=== PATIENT | male | born 1990 | race Hispanic/Latino ===

== ENCOUNTER 2018-06-20 18:59 | Emergency (ER) | payer SELFPAY ==
[2018-06-20] MEDS ORDERED: ONDANSETRON 4 MG/2 ML VIAL ONE (19:36)
[2018-06-20] MEDS ORDERED: FENTANYL CITR 100 MCG/2 ML ONE ×3 (19:36→22:55)
[2018-06-20 19:54] LABS: Absolute Lymphocytes (CBC) 1.7 K/uL (0.7-4.9); Absolute Monocytes 0.3 K/uL (0.1-1.3); Absolute Neutrophil 4.6 K/uL (1.8-8.0); Basophils % 0.6 % (0-1.3); Eosinophils % 1.8 % (0-4.4); Hematocrit 37.6 % (39.6-49.0); MPV 9.3 fL (7.6-11.3); Monocytes % 5.1 % (3.3-12.3); RBC Red Blood Cell Count 4.01 M/uL (4.33-5.43)
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
[2018-06-20 20:08] LABS: Potassium 4.1 mmol/L (3.5-5.1)
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
[2018-06-20] MEDS ORDERED: LIDOCAINE 1% MPF 5 ML VIAL ONE (21:37)
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
[2018-06-20] MEDS ORDERED: CEFAZOLIN 1GM (PREMIX IV) 1 GM/50 ML BAG ONE (22:56)
[2018-06-20] MEDS ORDERED: CEFAZOLIN SODIUM 1 GM/VIAL ONE (22:56)
== END 2018-06-20 23:34 | disposition home or self-care (01) ==
LOC: ER 18:59
PROC: 0JQH0ZZ Repair Left Lower Arm Subcutaneous Tissue and Fascia, Open Approach (ICD-10-PCS; principal; 2018-06-20)
PROC: 0CQ1XZZ Repair Lower Lip, External Approach (ICD-10-PCS; 2018-06-20)
DX: S51.012A Laceration without foreign body of left elbow, initial encounter (principal); S00.83XA Contusion of other part of head, initial encounter; S01.511A Laceration without foreign body of lip, initial encounter; Y08.02XA Assault by strike by baseball bat, initial encounter; Y08.89XA Assault by other specified means, initial encounter; V87.8XXA Person injured in other specified noncollision transport accidents involving motor vehicle (traffic), initial encounter
CPT/HCPCS: 36415; 70450; 70486; 71260; 72125; 74177; 76377; 80048; 85025; 86850; 86900; 86901; 96365; 96375; 99285; J0690; J2405; J3010; Q9967

== ENCOUNTER 2019-07-22 | Emergency (ER) | payer SELFPAY ==
--- NOTE | 2019-07-22 11:46 | EDPHYS ---
Physician Documentation [facility] Name: Johnathon Mcgrath Age: 29 yrs Sex: Male : 1990 Arrival Date: 07/22/2019 Time: 10:34 Bed 19 Private MD: ED Physician Cory Siu HPI: 07/21 11:38 This 29 yrs old Male presents to ER via Ambulatory with complaints of Cough. ps1 11:38 patient had symptoms of cough for 4 days. No distress. Concern for COVID. No CDC ps1 testing requirement. No fever. . Historical: - Allergies: 11:07 No Known Allergies; iw - Home Meds: 11:07 None [Active]; iw - PMHx: 11:07 None; iw - PSHx: 11:07 None; iw - Immunization history:: Adult Immunizations not up to date. - Social history:: Smoking status: Patient reports the use of cigarette tobacco products, smokes one-half pack cigarettes per day. ROS: 11:38 Constitutional: Negative for fever, chills, and weight loss, Eyes: Negative for injury, ps1 pain, redness, and discharge, Cardiovascular: Negative for chest pain, palpitations, and edema, Abdomen/GI: Negative for abdominal pain, nausea, vomiting, diarrhea, and constipation, MS/Extremity: Negative for injury and deformity, Skin: Negative for injury, rash, and discoloration, Neuro: Negative for headache, weakness, numbness, tingling, and seizure. 11:38 Respiratory: Positive for cough. Exam: 11:38 Constitutional: This is a well developed, well nourished patient who is awake, alert, ps1 and in no acute distress. Head/Face: Normocephalic, atraumatic. 11:38 MS/ Extremity: Pulses equal, no cyanosis. Neurovascular intact. Full, normal range of motion. Neuro: Awake and alert, GCS 15, oriented to person, place, time, and situation. Cranial nerves II-XII grossly intact. Sensory grossly intact. Psych: Awake, alert, with orientation to person, place and time. Behavior, mood, and affect are within normal limits. 11:38 Cardiovascular: deferred. Normal HR. . 11:38 Respiratory: Deferred auscultation. Normal effort. No audible wheezing. No distress. . 11:38 Abdomen/GI: deferred. . Vital Signs: 11:05 BP 114 / 79; Pulse 87; Resp 16; Temp 98.4; Pulse Ox 97% on R/A; Weight 89.81 kg; Height iw 5 ft. 7 in. (170.18 cm); Pain 2/10; 11:05 Body Mass Index 31.01 (89.81 kg, 170.18 cm) iw MDM: 11:40 Differential Diagnosis: Bronchitis Influenza Upper Respiratory Infection Viral ps1 Syndrome. Data reviewed: vital signs, nurses notes, and as a result, I will discharge patient. ED course: Does not meet CDC current guidelines for testing. Unlabored breathing. Home with tessalon. Follow quarantine guidelines for 14 days. Social distancing. Return if experience respiratory distress. . 11:44 Patient medically screened. ps1 Administered Medications: No medications were administered Disposition: 07/22/19 11:44 Discharged to Home. Impression: Bronchitis, not specified as acute or chronic, COVID-19 possible community exposure, no testing performed. . - Condition is Stable. - Discharge Instructions: Acute Bronchitis, Adult. - Prescriptions for Tessalon Perles 100 mg Oral Capsule - take 1 capsule by ORAL route every 8 hours As needed; 15 capsule. - Medication Reconciliation Form, Thank You Letter, Antibiotic Education, Prescription Opioid Use form. - Follow up: Emergency Department; When: As needed; Reason: Fever > 102 F, Trouble breathing, Worsening of condition. - Problem is new. - Symptoms are unchanged. Signatures: Tg Traore RN RN Ann-Marie White Phillip, MD MD ps1 Corrections: (The following items were deleted from the chart) 11:56 11:44 07/22/2019 11:44 Discharged to Home. Impression: Bronchitis, not specified as wh acute or chronic; COVID-19 possible community exposure, no testing performed. . Condition is Stable. Forms are Medication Reconciliation Form, Thank You Letter, Antibiotic Education, Prescription Opioid Use. Follow up: Emergency Department; When: As needed; Reason: Fever > 102 F, Trouble breathing, Worsening of condition. Problem is new. Symptoms are unchanged. ps1
--- NOTE | 2019-07-22 11:46 | ER ---
Nurse's Notes [facility] Name: Johnathon Mcgrath Age: 29 yrs Sex: Male : 1990 Arrival Date: 07/22/2019 Time: 10:34 Bed 19 Private MD: Diagnosis: Bronchitis, not specified as acute or chronic;COVID-19 possible community exposure, no testing performed. Presentation: 07/21 11:05 Chief complaint: Patient states: cough X 2 days, with phlegm, no fever, mild pain in iw neck. Coronavirus screen: The patient has NOT traveled to a country currently being monitored by the [facility] within the last 14 days. Proceed with normal triage procedures. The patient has NOT had contact with any known and/or suspected case of coronavirus. Proceed with normal triage procedures. Ebola Screen: Patient negative for fever greater than or equal to 101.5 degrees Fahrenheit, and additional compatible Ebola Virus Disease symptoms Patient denies exposure to infectious person. Patient denies travel to an Ebola-affected area in the 21 days before illness onset. No symptoms or risks identified at this time. Initial Sepsis Screen: Does the patient meet any 2 criteria? No. Patient's initial sepsis screen is negative. Does the patient have a suspected source of infection? No. Patient's initial sepsis screen is negative. Risk Assessment: Do you want to hurt yourself or someone else? Patient reports no desire to harm self or others. 11:05 Method Of Arrival: Ambulatory iw 11:05 Acuity: AMIE 4 iw 11:25 Onset of symptoms was July 22, 2019. wh Historical: - Allergies: 11:07 No Known Allergies; iw - Home Meds: 11:07 None [Active]; iw - PMHx: 11:07 None; iw - PSHx: 11:07 None; iw - Immunization history:: Adult Immunizations not up to date. - Social history:: Smoking status: Patient reports the use of cigarette tobacco products, smokes one-half pack cigarettes per day. Screenin:25 Abuse screen: Denies threats or abuse. Denies injuries from another. Nutritional wh screening: No deficits noted. Tuberculosis screening: No symptoms or risk factors identified. Fall Risk None identified. Assessment: 11:25 General: Appears in no apparent distress. Behavior is calm, cooperative, appropriate wh for age. Pain: Denies pain. Neuro: Level of Consciousness is awake, alert, obeys commands, Oriented to person, place, time, situation, Appropriate for age. Cardiovascular: Heart tones S1 S2. Respiratory: Reports cough that is Airway is patent Respiratory effort is even, unlabored, Respiratory pattern is regular, symmetrical, Breath sounds are clear bilaterally. GI: Abdomen is flat, non-distended. : No signs and/or symptoms were reported regarding the genitourinary system. EENT: No signs and/or symptoms were reported regarding the EENT system. Derm: Skin is intact, is healthy with good turgor, Skin is pink, warm \T\ dry. normal. Musculoskeletal: Circulation, motion, and sensation intact. Vital Signs: 11:05 BP 114 / 79; Pulse 87; Resp 16; Temp 98.4; Pulse Ox 97% on R/A; Weight 89.81 kg; Height iw 5 ft. 7 in. (170.18 cm); Pain 2/10; 11:05 Body Mass Index 31.01 (89.81 kg, 170.18 cm) ED Course: 10:34 Patient arrived in ED. mr 11:07 Triage completed. iw 11:07 Arm band placed on. iw 11:12 Ann-Marie White is Primary Nurse. 11:17 Cory Siu MD is Attending Physician. ps1 11:25 Patient has correct armband on for positive identification. Bed in low position. Call light in reach. Side rails up X 1. Pulse ox on. NIBP on. 11:55 No provider procedures requiring assistance completed. Patient did not have IV access during this emergency room visit. Administered Medications: No medications were administered Outcome: 11:44 Discharge ordered by . ps1 11:55 Discharged to home ambulatory. 11:55 Condition: stable 11:55 Instructed on Pt left before being discharged. Educated Pt on Coronavirus Algorithm for testing. Pt insisted he just wanted to be tested and left 11:56 Patient left the ED. Signatures: Sonya Jimenez Irene, RN RN Ann-Marie White Cory Siu MD MD ps1
== END 2019-07-22 11:56 | disposition home or self-care (01) ==
CPT/HCPCS: 99283

== ENCOUNTER 2020-04-22 23:31 | Inpatient (IN) | payer SELFPAY ==
[2020-04-23 00:30] LABS: Absolute Lymphocytes (CBC) 3.1 K/uL (0.7-4.9); Basophils % 0.5 % (0-1.3); Hematocrit 40.5 % (39.6-49.0); MPV 9.6 fL (7.6-11.3); RBC Red Blood Cell Count 4.52 M/uL (4.33-5.43)
[2020-04-23 00:34] LABS: Protime INR 1.18
[2020-04-23] MEDS ORDERED: NA CHLORIDE 0.9% 1,000 ML ONE ×4 (00:36→07:47)
[2020-04-23] MEDS ORDERED: LORazepam 2 MG/ML VIAL ONE ×4 (00:49→08:16)
[2020-04-23 01:21] LABS: ALT/SGPT 49 U/L (12-78); AST/SGOT 59 U/L (15-37); Albumin 4.8 g/dL (3.4-5.0); Alkaline Phosphatase 93 U/L (45-117); BUN Blood Urea Nitrogen 37 mg/dL (7-18); Bicarbonate 23 mmol/L (21-32); Bilirubin Direct 0.3 mg/dL (0-0.2); Bilirubin Total 1.1 mg/dL (0.2-1.0); Glucose Level 87 mg/dL (74-106); Potassium 3.7 mmol/L (3.5-5.1); Protein, Total 9.1 g/dL (6.4-8.2); Sodium Level 137 mmol/L (136-145)
[2020-04-23] MEDS ORDERED: DIPHENHYDRAMINE 50 MG/ML VIAL ONE ×2 (01:32→03:01)
[2020-04-23] MEDS ORDERED: HALOPERIDOL LACT 5 MG/ML INJ ONE (01:32)
[2020-04-23 04:02] LABS: Urine Blood 1+ (NEG); Urine Glucose NEGATIVE (NEG); Urine Protein 1+ (NEG); Urine Specific Gravity >1.030 (1.005-1.030); Urine pH 5.5 (5.0-7.0)
[2020-04-23 04:30] LABS: Barbiturates NEGATIVE (NEGATIVE); Benzodiazepines NEGATIVE (NEGATIVE); Cocaine NEGATIVE (NEGATIVE); METHAMPHETAM POSITIVE (NEGATIVE); Methadone NEGATIVE (NEGATIVE); Opiates NEGATIVE (NEGATIVE); Phencyclidine NEGATIVE (NEGATIVE); THC Cannibis POSITIVE (NEGATIVE)
[2020-04-23 07:13] LABS: Potassium 3.8 mmol/L (3.5-5.1)
--- NOTE | 2020-04-23 07:40 | EDPHYS ---
Physician Documentation [facility] Name: Johnathon Mcgrath Age: 30 yrs Sex: Male : 1990 Arrival Date: 04/22/2020 Time: 23:41 Bed 3 Private MD: ED Physician Kevyn Grant HPI: 04/23 00:20 This 30 yrs old Male presents to ER via EMS with complaints of Ingestion of cp Methamphetamine. 00:20 The patient presents to the emergency department with a possible overdose, patient cp admits to ingestion of methamphetamine and 6 pack of red bull today. Associated signs and symptoms: Pertinent positives: anxiety, abdominal pain, right shoulder pain. Historical: - Allergies: 04/22 23:30 No Known Allergies; jb4 - Home Meds: 23:30 None [Active]; jb4 - PMHx: 23:30 None; jb4 - PSHx: 23:30 None; jb4 - Immunization history:: Adult Immunizations unknown. - Social history:: Smoking status: Patient reports the use of cigarette tobacco products, Patient uses street drugs, Methamphetamine (Meth) Patient/guardian denies using alcohol. ROS: 04/23 00:30 Unable to obtain ROS due to patient being uncooperative. cp Exam: 04/22 23:47 ECG was reviewed by the Attending Physician. cp 04/23 00:35 Head/Face: Normocephalic, atraumatic. cp Constitutional: The patient appears in no acute distress, alert, awake, non-diaphoretic, non-toxic, well developed, well nourished, anxious. 00:35 Eyes: Periorbital structures: appear normal, Pupils: constricted, bilaterally, cp Extraocular movements: intact throughout, Conjunctiva: normal, no exudate, no injection, Lids and lashes: appear normal, bilaterally. 00:35 ENT: External ear(s): are unremarkable, Nose: is normal, Mouth: Lips: moist, Oral cp mucosa: moist, Posterior pharynx: Airway: no evidence of obstruction, patent. 00:35 Chest/axilla: Inspection: normal, Palpation: is normal, no crepitus, no tenderness. 00:35 Cardiovascular: Rate: tachycardic, Rhythm: regular. 00:35 Respiratory: the patient does not display signs of respiratory distress, Respirations: labored breathing, is not present, accessory muscle usage, is absent, intercostal retractions, are absent, Breath sounds: are clear throughout, no decreased breath sounds, no stridor, no wheezing. 00:35 Abdomen/GI: Inspection: abdomen appears normal, Palpation: abdomen is soft and non-tender, in all quadrants. 00:35 Neuro: Motor: moves all fours, strength is normal. 00:35 Psych: Behavior/mood is anxious, Affect is animated, Judgement / Insight is impaired. Vital Signs: 04/22 23:30 BP 126 / 85; Pulse 125; Resp 18; Temp 98.0(O); Pulse Ox 100% on R/A; Weight 81.65 kg jb4 (R); Height 5 ft. 7 in. (170.18 cm) (R); Pain 6/10; 04/23 02:20 BP 122 / 48; Pulse 110; Resp 16; Pulse Ox 96% on R/A; jb4 03:00 BP 99 / 58; Pulse 94; Resp 16; Pulse Ox 96% on R/A; jb4 04:00 BP 103 / 53; Pulse 91; Resp 14; Pulse Ox 94% on R/A; jb4 05:00 BP 111 / 56; Pulse 71; Resp 16; Pulse Ox 97% on R/A; jb4 06:00 BP 103 / 59; Pulse 81; Resp 16; Pulse Ox 97% on R/A; jb4 04/22 23:30 Body Mass Index 28.19 (81.65 kg, 170.18 cm) jb4 MDM: 04/22 23:52 Patient medically screened. cp 04/22 23:49 Order name: Acetaminophen; Complete Time: 01:28 cp 04/22 23:49 Order name: Basic Metabolic Panel; Complete Time: 01: cp 04/23 01:28 Interpretation: Normal except: BUN 37; CRE 1.99; GFR 40. cp 04/22 23:49 Order name: CBC with Diff; Complete Time: 00:50 cp 04/23 00:50 Interpretation: Normal except: WBC 14.6; MCV 89.7; NEUT A 9.8; MNA 1.5. cp 04/22 23:49 Order name: ETOH Level; Complete Time: 02:06 cp 04/22 23:49 Order name: Hepatic Function; Complete Time: 01:28 cp 04/22 23:49 Order name: PT-INR; Complete Time: 00:50 04/22 23:49 Order name: Ptt, Activated; Complete Time: 00:50 04/22 23:49 Order name: Salicylate; Complete Time: 03:14 04/22 23:49 Order name: Urine Drug Screen; Complete Time: 04:56 04/23 00:20 Order name: Lipase; Complete Time: 02:06 04/23 01:42 Order name: CK; Complete Time: 03:01 04/23 01:42 Order name: LAB Add On 04/23 03:54 Order name: Urine Dipstick--Ancillary (enter results); Complete Time: 04:24 tt3 04/23 05:07 Order name: Basic Metabolic Panel; Complete Time: 07:36 [email or web address] 04/23 00:19 Order name: XRAY Shoulder RIGHT 2 view; Complete Time: 13:26 04/23 01:42 Order name: CT Head Brain wo Cont; Complete Time: 20:13 04/23 05:07 Order name: CPK; Complete Time: 07:36 [facility] 04/23 08:18 Order name: CBC with Automated Diff EDMS 04/23 08:18 Order name: CBC with Automated Diff EDMS 04/23 08:18 Order name: Comprehensive Metabolic Panel EDMS 04/23 08:18 Order name: Comprehensive Metabolic Panel EDMS 04/23 08:18 Order name: Creatine Phosphokinase EDMS 04/23 08:18 Order name: Creatine Phosphokinase EDMS 04/23 08:18 Order name: Creatine Phosphokinase EDMS 04/23 08:18 Order name: Creatine Phosphokinase EDMN 04/23 08:23 Order name: COVID-19 ph 04/23 08:57 Order name: CORONAVIRUS EDMS 04/23 09:38 Order name: SARS-COV-2 RT PCR; Complete Time: 13:26 EDMN 04/22 23:49 Order name: EKG; Complete Time: 23:50 04/22 23:49 Order name: EKG - Nurse/Tech; Complete Time: 23:49 04/22 23:49 Order name: IV Saline Lock; Complete Time: 00:12 04/22 23:49 Order name: Labs collected and sent; Complete Time: 00:12 04/22 23:49 Order name: Urine Dipstick-Ancillary (obtain specimen); Complete Time: 03:46 cp 04/23 05:14 Order name: Restraint:Non-Violent; Complete Time: 05:23 lp1 04/23 08:18 Order name: CONS Pharmacy Consult EDMS 04/23 08:18 Order name: NPO EDMS EC:47 Rate is 118 beats/min. Rhythm is regular. WA interval is normal. QRS interval is cp normal. QT interval is normal. T waves are Inverted in lead aVR. Interpreted by me. Reviewed by me. Administered Medications: 04/23 00:30 Drug: NS 0.9% 1000 ml Route: IV; Rate: 1 bolus; Site: right forearm; jb4 01:30 Follow up: Response: No adverse reaction; IV Status: Completed infusion; IV Intake: jb4 1000ml 00:37 Drug: Ativan 0.5 mg Route: IVP; Site: right forearm; jb4 01:00 Follow up: Response: No adverse reaction jb4 01:24 Drug: Benadryl 25 mg Route: IM; Site: left deltoid; jb4 02:00 Follow up: Response: No adverse reaction jb4 01:25 Drug: HALdol (as decanoate) 10 mg Route: IM; Site: left deltoid; jb4 02:00 Follow up: Response: No adverse reaction jb4 01:39 Drug: NS 0.9% 1000 ml Route: IV; Rate: 1 bolus; Site: left forearm; jb4 02:30 Follow up: Response: No adverse reaction; IV Status: Completed infusion; IV Intake: jb4 1000ml 01:39 Drug: Ativan 1 mg Route: IVP; Site: right forearm; jb4 02:00 Follow up: Response: No adverse reaction jb4 04:04 Drug: NS 0.9% 1000 ml Route: IV; Rate: 1000 ml; Site: right antecubital; jb4 05:00 Follow up: Response: No adverse reaction; IV Status: Completed infusion; IV Intake: jb4 1000ml 08:10 Drug: Ativan 2 mg Route: IVP; Site: right forearm; ph 08:23 Follow up: Response: No adverse reaction ph Disposition: 07:37 Co-signature as Attending Physician, Kevyn Grant MD Pt with up-trending CK, despite 3 L rn fluids, still intoxicated with blood in urine, mild rhabdomyolysis, admitted to Dr. Martino . Disposition: 04/23/20 07:39 Hospitalization ordered by Mathieu Martino for Observation. Preliminary diagnosis are Adverse effect of amphetamines, Rhabdomyolysis, Dehydration. - Bed requested for Telemetry/MedSurg (observation). - Status is Observation. ph - Condition is Stable. - Problem is new. - Symptoms have worsened. Signatures: Dispatcher [employer] EDMS Daisy Villarreal RN RN dw Nieto, Roman, MD MD rn Pena, Laura, RN RN lp1 Heather Bautista RN RN ph Mak Wright PA PA cp Miles Londono RN RN jb4 Juma Cooper MD MD [id number] Corrections: (The following items were deleted from the chart) 00:50 00:50 Normal except: WBC 14.6; MCV 89.7; NEUT A 9.8. cp cp 10:36 07:39 Hospitalization Ordered by Mathieu Martino MD for Observation. Preliminary dw diagnosis is Adverse effect of amphetamines; Rhabdomyolysis; Dehydration. Bed requested for Telemetry/MedSurg (observation). Status is Observation. Condition is Stable. Problem is new. Symptoms have worsened. rn 11:10 10:36 04/23/2020 07:39 Hospitalization Ordered by Mathieu Martino MD for Observation. ph Preliminary diagnosis is Adverse effect of amphetamines; Rhabdomyolysis; Dehydration. Bed requested for Telemetry/MedSurg (observation). Status is Observation. Condition is Stable. Problem is new. Symptoms have worsened. dw
--- NOTE | 2020-04-23 07:40 | ER ---
Nurse's Notes [facility] Name: Johnathon Mcgrath Age: 30 yrs Sex: Male : 1990 Arrival Date: 04/22/2020 Time: 23:41 Bed 3 Private MD: Diagnosis: Adverse effect of amphetamines;Rhabdomyolysis;Dehydration Presentation: 04/22 23:30 Chief complaint: EMS states: Pt is complaining of abdominal pain, he is pretty anxious jb4 and was diaphoretic on scene. Pt reports consuming meth and a 6 pack of red bull today. 23:30 Coronavirus screen: Client denies travel out of the [place] in the last 14 days. At this jb4 time, the client does not indicate any symptoms associated with coronavirus-19. Ebola Screen: No symptoms or risks identified at this time. Initial Sepsis Screen: Does the patient meet any 2 criteria? HR > 90 bpm. Yes Does the patient have a suspected source of infection? No. Patient's initial sepsis screen is negative. Risk Assessment: Do you want to hurt yourself or someone else? Patient reports no desire to harm self or others. Onset of symptoms was April 22, 2020. Transition of care: patient was not received from another setting of care. 23:30 Method Of Arrival: EMS: [facility] jb4 23:30 Acuity: AMIE 2 jb4 Historical: - Allergies: 23:30 No Known Allergies; jb4 - Home Meds: 23:30 None [Active]; jb4 - PMHx: 23:30 None; jb4 - PSHx: 23:30 None; jb4 - Immunization history:: Adult Immunizations unknown. - Social history:: Smoking status: Patient reports the use of cigarette tobacco products, Patient uses street drugs, Methamphetamine (Meth) Patient/guardian denies using alcohol. Screenin/18 23:30 Abuse screen: Denies threats or abuse. Nutritional screening: No deficits noted. jb4 Tuberculosis screening: No symptoms or risk factors identified. Fall Risk None identified. Assessment: 23:30 General: Appears in no apparent distress. uncomfortable, Behavior is cooperative, jb4 anxious. Pain: Complains of pain in right shoulder Pain does not radiate. Pain currently is 6 out of 10 on a pain scale. Neuro: Level of Consciousness is awake, alert, obeys commands, Oriented to person, place, time. Cardiovascular: Skin is warm and diaphoretic. . Rhythm is sinus tachycardia. Respiratory: Airway is patent Respiratory effort is even, unlabored, Respiratory pattern is regular, symmetrical. GI: No signs and/or symptoms were reported involving the gastrointestinal system. : No signs and/or symptoms were reported regarding the genitourinary system. EENT: No signs and/or symptoms were reported regarding the EENT system. Derm: Skin is intact, Skin is diaphoretic, Skin is normal, Skin temperature is warm. Musculoskeletal: Circulation, motion, and sensation intact. Range of motion: intact in all extremities. 04/23 00:30 Reassessment: Patient appears in no apparent distress at this time. Patient and/or jb4 family updated on plan of care and expected duration. Pain level reassessed. Patient is alert, oriented x 3, equal unlabored respirations, skin warm/dry/pink. Pt continues to hallucinate and shout. provider notified. 01:30 Reassessment: Patient appears in no apparent distress at this time. No changes from jb4 previously documented assessment. Patient and/or family updated on plan of care and expected duration. Pain level reassessed. 02:03 Reassessment: Patient appears in no apparent distress at this time. Patient and/or jb4 family updated on plan of care and expected duration. Pain level reassessed. Pt is now resting comfortably in bed with eyes closed. respirations are even and unlabored, no s/s of pain or distress noted. 02:50 Reassessment: Patient appears in no apparent distress at this time. Patient and/or jb4 family updated on plan of care and expected duration. Pain level reassessed. Pt growing more restless and agitated, provider notified, see MAR for orders. 03:30 Reassessment: Patient appears in no apparent distress at this time. Patient and/or jb4 family updated on plan of care and expected duration. Pain level reassessed. Pt continues to appear agitated, transferred to CT with the help of thin film technician. Straight cath performed, assisted by thin film technician, Charge nurse and Physician. 04:26 Reassessment: Patient appears in no apparent distress at this time. Patient and/or jb4 family updated on plan of care and expected duration. Pain level reassessed. Pt currently resting calmly in bed with eyes closed, respirations are even and unlabored with no s/s or pain or distress noted. 05:00 Reassessment: Patient noted to be standing at edge of bed, unsteady gait, guided back lp1 into bed by ED staff; Verbal order for restraints by Dr. Cooper for patient safety. 06:00 Reassessment: Patient appears in no apparent distress at this time. No changes from jb4 previously documented assessment. Patient and/or family updated on plan of care and expected duration. Pain level reassessed. 08:06 Reassessment: Patient appears in no apparent distress at this time. Pt writhing around ph in bed, moaning, states, " I need to take a cold shower." encouraged pt to stay in bed, pt w/ difficulty following commands, ERP notified, verbal order received for Ativan. Vital Signs: 04/22 23:30 BP 126 / 85; Pulse 125; Resp 18; Temp 98.0(O); Pulse Ox 100% on R/A; Weight 81.65 kg jb4 (R); Height 5 ft. 7 in. (170.18 cm) (R); Pain 6/10; 04/23 02:20 BP 122 / 48; Pulse 110; Resp 16; Pulse Ox 96% on R/A; jb4 03:00 BP 99 / 58; Pulse 94; Resp 16; Pulse Ox 96% on R/A; jb4 04:00 BP 103 / 53; Pulse 91; Resp 14; Pulse Ox 94% on R/A; jb4 05:00 BP 111 / 56; Pulse 71; Resp 16; Pulse Ox 97% on R/A; jb4 06:00 BP 103 / 59; Pulse 81; Resp 16; Pulse Ox 97% on R/A; jb4 04/22 23:30 Body Mass Index 28.19 (81.65 kg, 170.18 cm) jb4 ED Course: 04/21 23:30 Patient has correct armband on for positive identification. Placed in gown. Bed in low jb4 position. Call light in reach. Side rails up X 1. quality assurance monitor chassis on. Pulse ox on. NIBP on. 04/22 23:30 Arm band placed on right wrist. jb4 23:41 Patient arrived in ED. jb4 23:44 Miles Londono, RN is Primary Nurse. jb4 23:46 Triage completed. jb4 23:48 Juma Cooper MD is Attending Physician. mh7 23:48 Mak Wright PA is PHCP. cp 04/23 01:21 XRAY Shoulder RIGHT 2 view In Process Unspecified. EDMS 03:44 CT Head Brain wo Cont In Process Unspecified. EDMS 07:15 Notified ED physician of a critical lab result(s). CPK 2328. lp1 07:15 LAB Add On Sent. sv 07:16 Primary Nurse role handed off by Miles Londono, INES jb4 07:22 Heather Bautista, RN is Primary Nurse. ph 07:39 Mathieu Martino MD is Hospitalizing Provider. rn 07:40 Attending Physician role handed off by Juma Cooper MD rn 07:40 Kevyn Grant MD is Attending Physician. rn 08:19 COVID swab sent to lab. sv 11:09 No provider procedures requiring assistance completed. Patient admitted, IV remains in ph place. Restraints: 05:00 Non-Violent Restraint: Order obtained. Initiated on April 23, 2020 at 05:00 lp1 Restraint Education provided to family/significant other/legally authorized motor vehicle representative. Actions/Behavior observed: Confused/disoriented, has difficulty remembering/follow instructions, has impaired decision making, repeated attempts to get up from bed/chair w/o assistance, has decreased level of consciousness, unable to follow instructions, Less restrictive alternatives attempted: decrease environmental stimuli, placed near Nurse station, reoriented to location, Alternative interventions: Ineffective. Clinical justification for use: patient safety, Mental status: confused, Cognition: Unable to assess. Circulation: Within defined parameters (based on Cardiovascular assessment) Skin integrity: Within defined parameters (based on Integumentary assessment) Signs of injury related to restraint: No injuries noted. Range of Motion (ROM): performed. Restraint status: Soft wrist restraint (Right) Started. Soft wrist restraint (Left) Started. 07:00 Non-Violent Restraint: Actions/Behavior observed: Confused/disoriented, has difficulty ph remembering/follow instructions, has impaired decision making, has decreased level of consciousness, unable to follow instructions, Mental status: confused, Cognition: poor judgement, poor safety awareness, unable to follow commands, Circulation: Within defined parameters (based on Cardiovascular assessment) Skin integrity: Within defined parameters (based on Integumentary assessment) Signs of injury related to restraint: No injuries noted. Range of Motion (ROM): performed. Restraint status: Soft wrist restraint (Right) Soft wrist restraint (Left). 08:30 Non-Violent Restraint: Mental status: patient asleep, Restraint Discontinued on ph April 23, 2020 at 08:30 Effective alternative interventions implemented: decreased environmental stimuli, placed near Nurse station, medicated for pain/anxiety. Administered Medications: 00:30 Drug: NS 0.9% 1000 ml Route: IV; Rate: 1 bolus; Site: right forearm; jb4 01:30 Follow up: Response: No adverse reaction; IV Status: Completed infusion; IV Intake: jb4 1000ml 00:37 Drug: Ativan 0.5 mg Route: IVP; Site: right forearm; jb4 01:00 Follow up: Response: No adverse reaction jb4 01:24 Drug: Benadryl 25 mg Route: IM; Site: left deltoid; jb4 02:00 Follow up: Response: No adverse reaction jb4 01:25 Drug: HALdol (as decanoate) 10 mg Route: IM; Site: left deltoid; jb4 02:00 Follow up: Response: No adverse reaction jb4 01:39 Drug: NS 0.9% 1000 ml Route: IV; Rate: 1 bolus; Site: left forearm; jb4 02:30 Follow up: Response: No adverse reaction; IV Status: Completed infusion; IV Intake: jb4 1000ml 01:39 Drug: Ativan 1 mg Route: IVP; Site: right forearm; jb4 02:00 Follow up: Response: No adverse reaction jb4 04:04 Drug: NS 0.9% 1000 ml Route: IV; Rate: 1000 ml; Site: right antecubital; jb4 05:00 Follow up: Response: No adverse reaction; IV Status: Completed infusion; IV Intake: jb4 1000ml 08:10 Drug: Ativan 2 mg Route: IVP; Site: right forearm; ph 08:23 Follow up: Response: No adverse reaction ph Intake: 04/22 21:45 IV: 1000ml; Total: 1000ml. jb4 04/23 01:30 IV: 1000ml; Total: 2000ml. jb4 02:30 IV: 1000ml; Total: 3000ml. jb4 05:00 IV: 1000ml; Total: 4000ml. jb4 Outcome: 07:39 Decision to Hospitalize by Provider. rn 11:09 Admitted to Med/surg accompanied by tech, via stretcher, with chart, Report called to suma Maurice 11:09 Condition: stable 11:10 Patient left the ED. Signatures: Dispatcher [employer] EDMS Rochelle Galvez, RN Kevyn Vitale MD MD rn Pena, Laura, RN RN lp1 Heather Bautista RN RN ph Page, Corey, PA PA cp Bryson, James, RN RN jb4 Juma Cooper MD MD mh7 Corrections: (The following items were deleted from the chart) 04/21 23:30 General: Appears in no apparent distress. uncomfortable, Behavior is jb4 cooperative, anxious, jb4 04/23 23:30 Neuro: Level of Consciousness is awake, alert, obeys commands, Oriented to jb4 person, place, time, situation, jb4
[2020-04-23] MEDS ORDERED: ACETAMINOPHEN 500 MG TAB PO PRN (08:15)
[2020-04-23] MEDS ORDERED: ONDANSETRON 4 MG/2 ML VIAL IV PRN (08:15)
[2020-04-23] MEDS ORDERED: MORPHINE 2 MG/ML SYR IV PRN (08:15)
--- NOTE | 2020-04-23 08:21 | P.HP ---
Certification for Inpatient Patient admitted to: Observation With expected LOS: <2 Midnights Patient will require the following post-hospital care: None Practitioner: I am a practitioner with admitting privileges, knowledge of patient current condition, hospital course, and medical plan of care. Services: Services provided to patient in accordance with Admission requirements found in Title 42 Section 412.3 of the Code of Federal Regulations Patient History Date of Service: 04/23/20 Reason for admission: AMS History of Present Illness: 30-year-old male with no significant past medical history who came in to ER with altered mental status after having Methamphetamine. At the time of interview patient is altered and drowsy hence most of the history is obtained from the chart review and also talking to the ER physician. The patient presents to the emergency department with a possible overdose, patient admits to ingestion of methamphetamine and 6 pack of red bull last night . Associated with with anxiety abdominal pain and generalized body pain. Patient was assessed in the ER and was found to have rhabdomyolysis and was admitted for further management Allergies No Known Drug Allergies Allergy (Unverified 12/30/14 10:03) Unknown No Known Allergies Allergy (Uncoded 09/06/16 03:16) Unknown Home medications list reviewed: Yes - Past Medical/Surgical History Past Medical History: Reviewed- Non-Contributory Past Surgical History: Reviewed- Non-Contributory - Family History Family History: Reviewed- Non-Contributory - Social History Smoking Status: Current some day smoker Review of Systems is unable to be obtained Physical Examination - Vital Signs Temperature: 98.4 F Blood Pressure: 128/76 Pulse: 98 Respirations: 20 - Physical Exam General: Confused, Other (Drowsy but arousable ) HEENT: Atraumatic, Normocephalic Neck: Supple Respiratory: Clear to auscultation bilaterally, Normal air movement Cardiovascular: No edema, Regular rate/rhythm, Normal S1 S2 Capillary refill: <2 Seconds Gastrointestinal: Soft and benign, W/out hepatosplenomegaly Musculoskeletal: No clubbing, No swelling Integumentary: No rashes, No breakdown Neurological: Other (Drowsy but arousable , moves all the limbs ) Lymphatics: No axilla or inguinal lymphadenopathy - Studies Laboratory Data (last 24 hrs) 04/23/20 06:23: Sodium 140, Potassium 3.8, BUN 28 H, Creatinine 1.23, Glucose 85 12/20/20 01:10: Lipase 41 L 04/23/20 00:10: PT 13.9 H, INR 1.18, APTT 29.1 04/23/20 00:10: WBC 14.6 H, Hgb 13.8, Hct 40.5, Plt Count 284 04/23/20 00:10: Sodium 137, Potassium 3.7, BUN 37 H, Creatinine 1.99 H, Glucose 87, Total Bilirubin 1.1 H, AST 59 H, ALT 49, Alkaline Phosphatase 93 Assessment and Plan - Problems (Diagnosis) (1) Acute encephalopathy Current Visit: Yes Status: Acute (2) Substance abuse Current Visit: Yes Status: Acute (3) Rhabdomyolysis Current Visit: Yes Status: Acute - Advance Directives Does patient have a Living Will: No Does patient have a Durable POA for Healthcare: No Physician Review Additional Text: Acute encephalopathy toxic substance abuse with methamphetamine Rhabdomyolysis Acute renal insufficiency Plan Monitor under test eng neuro vital signs CT of the head negative for any acute changes Monitor renal parameters Monitor CK serially aggressive hydration GI/DVT prophylaxis Time Spent Managing Pts Care (In Minutes): 42
--- NOTE | 2020-04-23 11:29 | RAD REPORT ---
EXAM DESCRIPTION: RAD - Shoulder Right 2 View - 04/23/2020 1:21 am CLINICAL HISTORY: PAIN COMPARISON: No comparisons FINDINGS: Examination is limited by nonstandard anatomic positioning. Within this limitation, no fra cture or dislocation is seen.
[2020-04-23] MEDS: NA CHLORIDE 0.9% 1,000 ML IV SCH ×3 (11:54→23:49)
[2020-04-23 15:38] VITALS: BMI 29.7
--- NOTE | 2020-04-23 17:51 | RAD REPORT ---
EXAM DESCRIPTION: CT Head Brain Wo Cont CLINICAL HISTORY: MENTAL STATUS CHANGE COMPARISON: CT head 06/20/2018 TECHNIQUE: Head/brain axial images acquired without contrast. Coronal and sagittal reformats created . Exam performed according to departmental dose-optimization program which includes automated exposur e control, adjustment of mA and/or kV according to patient size, and/or use of iterative reconstructi on technique. FINDINGS: No midline shift, mass effect, intracranial hemorrhage, or hydrocephalus. Brain parenchyma unremarkable. Paranasal sinuses and mastoid air cells clear. No skull fracture or significant skull lesion. IMPRESSION: Unremarkable CT head without contrast. Electronically signed by: Jose Kelley MD 04/23/2020 4:14 AM INSOLE PRESSER Due to temporary technical issues with the PACS/Fluency reporting system, reports are being signed by the in house radiologists without review as a courtesy to insure prompt reporting. The interpreting radiologist is fully responsible for the content of the report.
[2020-04-23 22:18] VITALS: O2SAT 100
[2020-04-24 05:54] LABS: Absolute Lymphocytes (CBC) 3.1 K/uL (0.7-4.9); Basophils % 0.5 % (0-1.3); Hematocrit 35.4 % (39.6-49.0); Lymphocytes % 50.2 % (15.3-44.8); MPV 8.8 fL (7.6-11.3); RBC Red Blood Cell Count 3.88 M/uL (4.33-5.43)
[2020-04-24 06:15] LABS: ALT/SGPT 36 U/L (12-78); AST/SGOT 42 U/L (15-37); Albumin 2.9 g/dL (3.4-5.0); Alkaline Phosphatase 62 U/L (45-117); BUN Blood Urea Nitrogen 14 mg/dL (7-18); Bicarbonate 29 mmol/L (21-32); Bilirubin Total 0.3 mg/dL (0.2-1.0); Glucose Level 83 mg/dL (74-106); Potassium 3.6 mmol/L (3.5-5.1); Protein, Total 6.2 g/dL (6.4-8.2); Sodium Level 144 mmol/L (136-145)
[2020-04-24 06:20] LABS: Creatine Phosphokinase 1442 U/L (39-308)
--- NOTE | 2020-04-24 08:08 | P.DS ---
Admission Date: 04/23/20 Discharge Date: 04/24/20 Primary Care Provider: none Disposition: ROUTINE DISCHARGE Discharge Condition: GOOD Reason for Admission: AMS Consultations: none Procedures: CT Scan: FINDINGS: No midline shift, mass effect, intracranial hemorrhage, or hydrocephalus. Brain parenchyma unremarkable. Paranasal sinuses and mastoid air cells clear. No skull fracture or significant skull lesion. IMPRESSION: Unremarkable CT head without contrast. Xray: Comparison: No comparisons FINDINGS: Examination is limited by nonstandard anatomic positioning. Within this limitation, no fracture or dislocation is seen. Medical Problem List: Acute metabolic/toxic encephalopathy related to drug abuse positive for methamphetamines/THC Acute renal insufficiency with rhabdomyolysis Brief History of Present Illness: 30-year-old male with no significant past medical history who came in to ER with altered mental status after using methamphetamine. In the ER patient was altered and drowsy. Patient admitted to ingesting methamphetamine and a six pack of Red Bull the previous night. CT head unremarkable. CPK elevated. Patient admitted for hydration and further evaluation. Hospital Course: Patient presented with altered mental status. Patient admitted using methamphetamines. Patient was positive for methamphetamines and THC. CT head unremarkable. The patient also was found to have acute rhabdomyolysis with acute renal insufficiency. The patient was admitted for further evaluation and treatment. Patient received IV fluids. Renal function improved back to baseline. CK also improved. At discharge, Orthostatics within normal range. Patient appears to be back to his baseline. At discharge patient will be sent home with folic acid 1 mg daily and thiamine 100 mg daily. Recommend to discontinue methamphetamines and THC. Risks of continued use addressed in detail. Education provided. Recommend to increase fluid intake over the next 1-2 weeks. Recommend to recheck lab-CK and BMP in 1-2 weeks to monitor his progress. Recommend to establish care with a local PCP to further monitor his care. Education on rhabdomyolysis and renal insufficiency provided. Vital Signs/Physical Exam: Temp Pulse Resp BP Pulse Ox 97.4 F 75 18 94/49 L 97 04/24/20 04:00 04/24/20 04:00 04/24/20 04:00 04/24/20 04:00 04/24/20 04:00 General: Alert, In no apparent distress, Oriented x3, Cooperative HEENT: Atraumatic Neck: Supple Respiratory: Clear to auscultation bilaterally, Normal air movement Cardiovascular: Normal pulses, Regular rate/rhythm Gastrointestinal: Normal bowel sounds, Soft and benign, Non-distended, No tenderness, No masses, No rebound, No guarding Musculoskeletal: No erythema, No tenderness, No warmth Integumentary: No tenderness/swelling, No erythema, No warmth, No cyanosis Neurological: Normal speech, Normal strength at 5/5 x4 extr, Normal tone, Normal affect Laboratory Data at Discharge: WBC 6.1 K/uL (4.3-10.9) D 04/24/20 05:32 Hgb 12.0 g/dL (13.6-17.9) L 04/24/20 05:32 Hct 35.4 % (39.6-49.0) L 04/24/20 05:32 Plt Count 222 K/uL (152-406) D 04/24/20 05:32 PT 13.9 SECONDS (9.5-12.5) H 04/23/20 00:10 INR 1.18 04/23/20 00:10 APTT 29.1 SECONDS (24.3-36.9) 04/23/20 00:10 Sodium 144 mmol/L (136-145) 04/24/20 05:32 Potassium 3.6 mmol/L (3.5-5.1) 04/24/20 05:32 BUN 14 mg/dL (7-18) 04/24/20 05:32 Creatinine 0.79 mg/dL (0.55-1.3) 04/24/20 05:32 Glucose 83 mg/dL (74-106) 04/24/20 05:32 Total Bilirubin 0.3 mg/dL (0.2-1.0) 04/24/20 05:32 AST 42 U/L (15-37) H 04/24/20 05:32 ALT 36 U/L (12-78) 04/24/20 05:32 Alkaline Phosphatase 62 U/L (45-117) 04/24/20 05:32 Lipase 41 U/L (73-393) L 04/23/20 01:10 Home Medications: Folic Acid 1 mg PO DAILY #30 tablet 04/24/20 Thiamine HCl 100 mg PO DAILY #30 tablet 04/24/20 New Medications: Folic Acid 1 mg PO DAILY #30 tablet Thiamine HCl 100 mg PO DAILY #30 tablet Patient Discharge Instructions: 1. Recommend to establish care with a local PCP to follow up this hospitalization. 2. Patient presented with altered mental status. Patient admitted using methamphetamines. Patient was positive for methamphetamines and THC. CT head unremarkable. The patient also was found to have acute rhabdomyolysis with acute renal insufficiency. The patient was admitted for further evaluation and treatment. Patient received IV fluids. Renal function improved back to baseline. CK also improved. At discharge, Orthostatics within normal range. Patient appears to be back to his baseline. At discharge patient will be sent home with folic acid 1 mg daily and thiamine 100 mg daily. Recommend to discontinue methamphetamines and THC. Risks of continued use addressed in detail. Education provided. Recommend to increase fluid intake over the next 1-2 weeks. Recommend to recheck lab-CK and BMP in 1- 2 weeks to monitor his progress. Recommend to establish care with a local PCP to further monitor his care. Education on rhabdomyolysis and renal insufficiency provided. Diet: Regular Activity: Ad my Followup: Unknown,U [Primary Care Provider] - Time spent managing pt's care (in minutes): 55
[2020-04-24 08:26] LABS: Blood Morphology Comment NOT SEEN (NOT SEEN); Platelet Estimate ADEQ
[2020-04-24 10:02] VITALS: BP 103/58; TEMP 97
== END 2020-04-24 11:00 | disposition home or self-care (01) | DRG 917 ==
LOC: ER 23:31 → ERHOLD 04-23 08:16 → 2ND 04-23 10:55 → OBSVTOIN 04-23 13:33
PROVIDERS: ADMIT Family Medicine; ATTEND Family Medicine
DX: T43.621A Poisoning by amphetamines, accidental (unintentional), initial encounter (principal); G92 Toxic encephalopathy; M62.82 Rhabdomyolysis; F17.210 Nicotine dependence, cigarettes, uncomplicated; N28.9 Disorder of kidney and ureter, unspecified; F41.9 Anxiety disorder, unspecified; F15.10 Other stimulant abuse, uncomplicated; Z20.828 Contact with and (suspected) exposure to other viral communicable diseases
CPT/HCPCS: 36415; 70450; 80048; 80053; 80076; 80307; 80320; 80329; 81003; 82550; 83690; 85025; 85610; 85730; 93005; 96361; 96372; 96374; 99285; J1200; J1630; J7030; U0003

== ENCOUNTER 2023-03-29 02:50 | Emergency (ER) | payer SELFPAY ==
[2023-03-29] MEDS ORDERED: IBUPROFEN 400 MG TAB ONE (03:27)
[2023-03-29] MEDS ORDERED: TRAMADOL HCL 50 MG TAB ONE (03:27)
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
[2023-03-29 05:02] VITALS: BP 128/86; TEMP 98; O2SAT 99
--- NOTE | 2023-03-31 11:47 | RAD REPORT ---
EXAM DESCRIPTION: XR TIBIA FIBULA RIGHT CLINICAL HISTORY: Male, 32 years old, PAIN TECHNIQUE: AP and lateral views right tib-fib, 4 images COMPARISON: None. FINDINGS: No acute fracture. Normal osseous mineralization. The partially assessed knee and ankle tony ints are congruent. Mild nonfocal soft tissue swelling. IMPRESSION: No acute osseous finding of the right lower leg. Electronically signed by: Anton Gallego MD 03/29/2023 05:02 AM PASTRY COOK HELPER Due to temporary technical issues with the PACS/Fluency reporting system, reports are being signed by the in house radiologist without review as a courtesy to ensure prompt reporting. The interpreting r adiologist is fully responsible for the content of the report.
--- NOTE | 2023-03-31 12:07 | RAD REPORT ---
EXAM DESCRIPTION: XR ANKLE 2 VIEWS LEFT, XR FOOT 3 OR MORE VIEWS LEFT, XR TIBIA FIBULA LEFT CLINICAL HISTORY: Male, 32 years old, PAIN TECHNIQUE: AP and lateral views of the left tib-fib, ankle, and foot; oblique view left foot; 9 tota l images COMPARISON: None. FINDINGS: No acute fracture. Normal osseous mineralization. Joints are congruent without significant degenerative change. Diffuse, circumferential soft tissue swelling from the knee to the ankle. IMPRESSION: Nonfocal soft tissue swelling without acute osseous finding of the assessed left lower e xtremity. Electronically signed by: Anton Gallego MD 03/29/2023 03:46 AM TECHNICIAN Due to temporary technical issues with the PACS/Fluency reporting system, reports are being signed by the in house radiologist without review as a courtesy to ensure prompt reporting. The interpreting r adiologist is fully responsible for the content of the report.
--- NOTE | 2023-03-31 12:23 | RAD REPORT ---
EXAM DESCRIPTION: XR ANKLE 2 VIEWS LEFT, XR FOOT 3 OR MORE VIEWS LEFT, XR TIBIA FIBULA LEFT CLINICAL HISTORY: Male, 32 years old, PAIN TECHNIQUE: AP and lateral views of the left tib-fib, ankle, and foot; oblique view left foot; 9 tota l images COMPARISON: None. FINDINGS: No acute fracture. Normal osseous mineralization. Joints are congruent without significant degenerative change. Diffuse, circumferential soft tissue swelling from the knee to the ankle. IMPRESSION: Nonfocal soft tissue swelling without acute osseous finding of the assessed left lower e xtremity. Electronically signed by: Anton Gallego MD 03/29/2023 03:46 AM VMWARE ARCHITECT Due to temporary technical issues with the PACS/Fluency reporting system, reports are being signed by the in house radiologist without review as a courtesy to ensure prompt reporting. The interpreting r adiologist is fully responsible for the content of the report.
--- NOTE | 2023-03-31 12:36 | RAD REPORT ---
EXAM DESCRIPTION: XR ANKLE 2 VIEWS LEFT, XR FOOT 3 OR MORE VIEWS LEFT, XR TIBIA FIBULA LEFT CLINICAL HISTORY: Male, 32 years old, PAIN TECHNIQUE: AP and lateral views of the left tib-fib, ankle, and foot; oblique view left foot; 9 tota l images COMPARISON: None. FINDINGS: No acute fracture. Normal osseous mineralization. Joints are congruent without significant degenerative change. Diffuse, circumferential soft tissue swelling from the knee to the ankle. IMPRESSION: Nonfocal soft tissue swelling without acute osseous finding of the assessed left lower e xtremity. Electronically signed by: Anton Gallego MD 03/29/2023 03:46 AM CARE TRANSITION MGR Due to temporary technical issues with the PACS/Fluency reporting system, reports are being signed by the in house radiologist without review as a courtesy to ensure prompt reporting. The interpreting r adiologist is fully responsible for the content of the report.
== END 2023-03-29 04:58 | disposition home or self-care (01) ==
LOC: ER 02:50
DX: S80.12XA Contusion of left lower leg, initial encounter (principal); S80.11XA Contusion of right lower leg, initial encounter
CPT/HCPCS: 99283

== ENCOUNTER 2023-09-12 12:49 | Emergency (ER) | payer SELFPAY ==
--- NOTE | 2023-09-12 13:06 | EDPHYS ---
Physician Documentation [facility] Name: Johnathon Mcgrath Age: 33 yrs Sex: Male : 1990 Arrival Date: 09/12/2023 Time: 12:49 Bed IW1 Private MD: ED Physician Mak See HPI: 09/11 13:03 This 33 yrs old Male presents to ER via Unassigned with complaints of kb Laceration To Nose. 13:03 Pt is a 33 year old male who presents for laceration to nose that occurred 1 week. kb States the wound hasn't closed and has been leaking pus. Denies fever. . Historical: - Allergies: 13:08 No Known Allergies; hb - Home Meds: 13:08 None [Active]; hb - PMHx: 13:08 None; hb - PSHx: 13:08 None; hb - Immunization history:: Adult Immunizations up to date. - Infectious Disease History:: Denies. - Social history:: Smoking status: Patient reports the use of cigarette tobacco products. ROS: 13:03 Constitutional: As per HPI kb Exam: 13:03 Constitutional: This is a well developed, well nourished patient who is awake, alert, kb and in no acute distress. Head/Face: Normocephalic, atraumatic. ENT: Moist Mucous membranes Cardiovascular: Regular rate Respiratory: Respirations even and unlabored. No increased work of breathing. Talking in full sentences MS/ Extremity: Pulses equal, no cyanosis. Neurovascular intact. Full, normal range of motion. Neuro: Awake and alert, GCS 15, oriented to person, place, time, and situation. Moves all extremities. Normal gait. 13:03 Skin: injury, laceration(s), the wound is approximately 1 cm(s), of the bridge of nose, that can be described as clean, no foreign body, linear, without bleeding, with surrounding erythema and swelling, Vital Signs: 13:06 BP 136 / 90; Pulse 103; Resp 16; Temp 97.7(TE); Pulse Ox 100% on R/A; Pain 0/10; hb 13:06 Pain Scale: Adult hb MDM: 12:56 Patient medically screened. kb 13:03 Data reviewed: vital signs, nurses notes. kb 13:08 Differential diagnosis: laceration, abrasion, abscess, wound infection. Counseling: I kb had a detailed discussion with the patient and/or guardian regarding the historical points, exam findings, and any diagnostic results supporting the discharge/admit diagnosis, the need for outpatient follow up, a family practitioner, to return to the emergency department if symptoms worsen or persist or if there are any questions or concerns that arise at home. Administered Medications: No medications were administered Disposition Summary: 09/12/23 13:06 Discharge Ordered Notes: Location: Home kb Condition: Stable kb Diagnosis - Laceration without foreign body of nose kb - Local infection of the skin and subcutaneous tissue, unspecified kb Followup: kb - With: Emergency Department - When: As needed - Reason: Worsening of condition Followup: kb - With: Private Physician - When: 2 - 3 days - Reason: Recheck today's complaints, Continuance of care, Re-evaluation by your physician Discharge Instructions: - Discharge Summary Sheet kb - Laceration Care, Adult, [id number] kb - Wound Infection, [id number] kb Forms: - Medication Reconciliation Form kb - Antibiotic Education kb - Prescription Opioid Use kb - Patient Portal Instructions kb - Leadership Thank You Letter kb Prescriptions: - mupirocin 2 % Topical ointment - apply 1 application TOPICAL route 3 times per day; 1 unit; Refills: 0, Product kb Selection Permitted - Cephalexin 500 mg Oral Capsule - take 1 capsule ORAL route every 8 hours for 10 days; 30 capsule; Refills: 0, kb Product Selection Permitted Signatures: Jeanne Gong, AMBERLYC ANNE-Catie Lu, RN RN
--- NOTE | 2023-09-12 13:13 | ER ---
Nurse's Notes [facility] Name: Johnathon Mcgrath Age: 33 yrs Sex: Male : 1990 Arrival Date: 09/12/2023 Time: 12:49 Bed IW1 Private MD: Diagnosis: Laceration without foreign body of nose;Local infection of the skin and subcutaneous tissue, unspecified Presentation: 09/11 13:06 Chief complaint: Laceration to bridge of nose x 1 week. Coronavirus screen: At this hb time, the client does not indicate any symptoms associated with coronavirus-19. Ebola Screen: No symptoms or risks identified at this time. Complicating Factors: There are no complicating factors for this patient. Initial Sepsis Screen: Does the patient meet any 2 criteria? HR > 90 bpm. No. Patient's initial sepsis screen is negative. Does the patient have a suspected source of infection? No. Patient's initial sepsis screen is negative. Risk Assessment: Do you want to hurt yourself or someone else? Patient reports no desire to harm self or others. Onset of symptoms was September 05, 2023. 13:06 Method Of Arrival: Ambulatory hb 13:06 Acuity: AMIE 4 hb Triage Assessment: 13:08 General: Appears in no apparent distress. Behavior is calm, cooperative. Pain: Denies hb pain. Neuro: Level of Consciousness is awake, alert, obeys commands, Oriented to person, place, time, situation. Cardiovascular: Patient's skin is warm and dry. Respiratory: Respiratory effort is even, unlabored, Respiratory pattern is regular, symmetrical. Injury Description: Laceration sustained to bridge of nose is 0.5 to 2.5 cm long, was sustained 7 days is bleeding no active bleeding noted. Historical: - Allergies: 13:08 No Known Allergies; hb - Home Meds: 13:08 None [Active]; hb - PMHx: 13:08 None; hb - PSHx: 13:08 None; hb - Immunization history:: Adult Immunizations up to date. - Infectious Disease History:: Denies. - Social history:: Smoking status: Patient reports the use of cigarette tobacco products. Screenin:09 [facility] ED Fall Risk Assessment (Adult) History of falling in the last 3 months, hb including since admission No falls in past 3 months (0 pts) Confusion or Disorientation No (0 pts) Intoxicated or Sedated No (0 pts) Impaired Gait No (0 pts) Mobility Assist Device Used No (0 pt) Altered Elimination No (0 pt) Score/Fall Risk Level 0 - 2 = Low Risk Oriented to surroundings, Maintained a safe environment, Educated pt \T\ family on fall prevention, incl call for assistance when getting out of bed. Abuse screen: Denies threats or abuse. Denies injuries from another. Nutritional screening: No deficits noted. Tuberculosis screening: No symptoms or risk factors identified. Assessment: 13:09 General: See triage assessmnet. hb Vital Signs: 13:06 BP 136 / 90; Pulse 103; Resp 16; Temp 97.7(TE); Pulse Ox 100% on R/A; Pain 0/10; hb 13:06 Pain Scale: Adult hb ED Course: 12:54 Patient arrived in ED. mg5 12:56 Jean[facility] Gong [facility]C [facility] kb 12:56 Mak See MD is Attending Physician. kb 13:07 Triage completed. hb 13:09 Arm band placed on. hb 13:09 Patient has correct armband on for positive identification. Provided Education on: hb wound care, medications. 13:09 No provider procedures requiring assistance completed. Patient did not have IV access hb during this emergency room visit. Administered Medications: No medications were administered Medication: 13:09 VIS not applicable for this client. hb Outcome: 13:06 Discharge ordered by . kb 13:09 Discharged to home ambulatory, hb 13:09 Condition: stable 13:09 Discharge instructions given to patient, Instructed on discharge instructions, follow up and referral plans. medication usage, wound care, Demonstrated understanding of instructions, follow-up care, medications, Prescriptions given X 2, 13:13 Patient left the ED. hb Signatures: Jeanne Gong FNP-C FNP-Ckb Baxter, Heather, RN RN Dionne Smalls mg5
[2023-09-12 13:30] VITALS: BP 136/90; TEMP 97.7; O2SAT 100
== END 2023-09-12 13:13 | disposition home or self-care (01) ==
LOC: ER 12:49
DX: S01.21XA Laceration without foreign body of nose, initial encounter (principal); L08.9 Local infection of the skin and subcutaneous tissue, unspecified; Z72.0 Tobacco use
CPT/HCPCS: 99283